=== PATIENT | male | born 1935 | race Caucasian/White ===

== ENCOUNTER 2018-03-24 14:13 | Emergency (ER) | payer MEDICARE, OTHER ==
[2018-03-24 14:18] VITALS: BP 145/83; PULSE 76; TEMP 98.3; BMI 27.7
[2018-03-24] MEDS ORDERED: DIPHTH,PERTUSS(ACELL),TET 0.5 ML DISP.SYRIN IM ONE (14:44)
--- NOTE | 2018-03-24 15:34 | PDOC ---
History of Present Illness - History of Present Illness Initial Comments: 03/24/18 15:28 The patient is a 82 year old male, with a past medical history of BPH, who presents to the emergency department with a laceration to the right side of the head. As per patient, a china cabinet fell over and landed his head. Pt denies falling down. He denies any loss of consciousness. Noted some bleeding from the injury that has since stopped. Denies neck or extremity trauma. No weakness. He denies any recent fevers, chills, headache or dizziness. He denies any recent nausea, vomit, diarrhea or constipation. He denies any recent chest pain or shortness of breath. Is not on any AC. Allergies: NKDA Past surgical history: None reported. Social History: Nonsmoker. Denies EtOH use and recreational drug use. <Nazario Correa - Last Filed: 03/24/18 16:06> <Kathryn Perez - Last Filed: 03/24/18 18:14> - General Chief Complaint: Laceration Stated Complaint: lac Time Seen by Provider: 03/24/18 14:20 Past History - Past Medical History COPD: No - Suicide/Smoking/Psychosocial Hx Smoking History: Never smoked Hx Alcohol Use: No Drug/Substance Use Hx: No Substance Use Type: None <Nazario Correa - Last Filed: 03/24/18 16:06> <Kathryn Perez - Last Filed: 03/24/18 18:14> - Past Medical History Allergies/Adverse Reactions: Allergies Allergy/AdvReac Type Severity Reaction Status Date / Time No Known Allergies Allergy Verified 03/24/18 14:14 Home Medications: Ambulatory Orders Tamsulosin HCl [Flomax] 0.4 mg PO DAILY 03/24/18 Review of Systems - Review of Systems Comments:: 03/24/18 15:31 "GENERAL/CONSTITUTIONAL: No fever or chills. No weakness. +HEAD, EYES, EARS, NOSE AND THROAT: Laceration to the right side of the head. No change in vision. No ear pain or discharge. No sore throat. CARDIOVASCULAR: No chest pain or shortness of breath. RESPIRATORY: No cough, wheezing, or hemoptysis. GASTROINTESTINAL: No nausea, vomiting, diarrhea or constipation. GENITOURINARY: No dysuria, frequency, or change in urination. MUSCULOSKELETAL: No joint or muscle swelling or pain. No neck or back pain. SKIN: No rash NEUROLOGIC: No headache, vertigo, loss of consciousness, or change in strength/ sensation. ENDOCRINE: No increased thirst. No abnormal weight change. HEMATOLOGIC/LYMPHATIC: No anemia, easy bleeding, or history of blood clots. ALLERGIC/IMMUNOLOGIC: No hives or skin allergy. <Ou,Nazario - Last Filed: 03/24/18 16:06> *Physical Exam - Vital Signs Last Vital Signs Temp Pulse Resp BP Pulse Ox 98.3 F 76 18 145/83 98 03/24/18 14:14 03/24/18 14:14 03/24/18 14:14 03/24/18 14:14 03/24/18 14:14 - Physical Exam Comments: 03/24/18 15:34 GENERAL: Awake, alert, and fully oriented, in no acute distress. HEAD: + 2cm laceration to R uatsdin EYES: PERRLA, EOMI, sclera anicteric, conjunctiva clear ENT: Auricles normal inspection, hearing grossly normal, nares patent, oropharynx clear without exudates. Moist mucosa NECK: Nontender, no stepoffs, Normal ROM, supple, no lymphadenopathy, JVD, or masses LUNGS: Breath sounds equal, clear to auscultation bilaterally. No wheezes, and no crackles HEART: Regular rate and rhythm, normal S1 and S2, no murmurs, rubs or gallops ABDOMEN: Soft, nontender, normoactive bowel sounds. No guarding, no rebound. No masses EXTREMITIES: Normal range of motion, no edema. No clubbing or cyanosis. No cords, erythema, or tenderness NEUROLOGICAL: Cranial nerves II through XII intact. 5/5 strength and sensation in all extremities, Normal speech, normal gait, normal cerebellar function SKIN: Warm, Dry, normal turgor, no rashes or lesions noted. <Ou,Nazario - Last Filed: 03/24/18 16:06> - Vital Signs Last Vital Signs Temp Pulse Resp BP Pulse Ox 98.3 F 76 18 145/83 98 03/24/18 14:14 03/24/18 14:14 03/24/18 14:14 03/24/18 14:14 03/24/18 14:14 <Kathryn Perez - Last Filed: 03/24/18 18:14> Procedures - Laceration/Wound Repair Right Head Wound Length: to 2.5 cm Wound Explored: clean Wound's Depth, Shape: superficial Irrigated w/ Saline: Yes Anesthesia: 1% Lidocaine Wound Repaired With: [place] Number of Sutures: 3 <Nazario Correa - Last Filed: 03/24/18 16:06> ED Treatment Course - RADIOLOGY Radiology Studies Ordered: Category Date Time Status HEAD CT WITHOUT CONTRAST [CT] Stat CT Scan 03/24/18 14:44 Taken <Nazario Correa - Last Filed: 03/24/18 16:06> - Medications Given in the ED: ED Medications Discontinued Medications Generic Name Dose Route Start Last Admin Trade Name Freq PRN Reason Stop Dose Admin Diphtheria/Tetanus/Acell Pertussis 0.5 ml 03/24/18 14:44 03/24/18 16:17 Boostrix - IM 03/24/18 14:45 0.5 ml .ONCE ONE Administration <Kathryn Perez - Last Filed: 03/24/18 18:14> Medical Decision Making - Medical Decision Making 03/24/18 15:34 82 M with head lac after [employer] cabinet fell on him. Pt with no other signs of injury. - CT head - Tdap - Lac repair 03/24/18 15:50 CT head negative 03/24/18 16:07 Lac irrigated with NS, repaired with 3 tennille Pt counseled on wound care and scar formation Pt is well appearing, with normal vitals. Clinically stable for DC at this time. I discussed the physical exam findings, ancillary test results and final diagnoses with the patient. I answered all of the patient's questions. The patient was satisfied with the care received and felt comfortable with the discharge plan and treatment plan. The patient agrees to follow up with the primary care physician within 24-72 hours. <Nazario Correa - Last Filed: 03/24/18 16:06> *DC/Admit/Observation/Transfer - Attestations Physician Attestion: 03/24/18 16:09 I, Dr. Nazario Correa MD, attest that this document has been prepared under my direction and personally reviewed by me in its entirety. I further attest, that it accurately reflects all work, treatment, procedures and medical decision -making performed by me. <Nazario Correa - Last Filed: 03/24/18 16:06> - Attestations Scribe Attestion: 03/24/18 18:14 Documentation prepared by Kathryn Perez, acting as medical records library professor for Nazario Correa MD. <Kathryn Perez - Last Filed: 03/24/18 18:14> Diagnosis at time of Disposition: Laceration - Discharge Dispostion Disposition: HOME Condition at time of disposition: Stable - Patient Instructions Printed Discharge Instructions: DI for Laceration Repair Additional Instructions: You have 3 tennille in your scalp. These must removed in 7-10 days. Keep your wound clean and dry for 24 hours. Afterwards, you may wash gently with soap and water. Do not soak the wound. If you experience any bleeding, redness, swelling, pain, or any other concerning symptoms, return to the ER immediately.
== END 2018-03-24 16:22 | disposition home or self-care (01) ==
LOC: FER 14:13
PROC: 0HQ0XZZ Repair Scalp Skin, External Approach (ICD-10-PCS; principal; 2018-03-24)
PROC: 3E0234Z Introduction of Serum, Toxoid and Vaccine into Muscle, Percutaneous Approach (ICD-10-PCS; 2018-03-24)
DX: S01.01XA Laceration without foreign body of scalp, initial encounter (principal); W22.8XXA Striking against or struck by other objects, initial encounter; Y93.9 Activity, unspecified; Y92.9 Unspecified place or not applicable; N40.0 Benign prostatic hyperplasia without lower urinary tract symptoms
CPT/HCPCS: 70450-TC; 90715; 99282-25

== ENCOUNTER 2018-08-11 19:49 | Inpatient (IN) | payer OTHER ==
--- NOTE | 2018-08-11 19:54 | PDOC ---
History of Present Illness - General History Source: Patient, Family () Exam Limitations: No Limitations - History of Present Illness Initial Comments: 08/11/18 20:45 The patient is a 83 year old male presenting with his , who presents to the ED complaining of a head injury today. He notes that he tripped on a divider in the parking lot, landing on his left side. He reports that he hit his head and lost consciousness for a few minutes. His took him to an urgent care, who advised them to come to the ED as they do not have a CT scanner. He denies any other kind of injuries, bruises or tenderness. The patient denies chest pain, shortness of breath, headache and dizziness. Denies fever, chills, nausea, vomiting, diarrhea or constipation. Denies dysuria , frequency, urgency and hematuria. PAST MEDICAL HISTORY: no significant history PAST SURGICAL HISTORY: Bilateral hip and knee replacement FAMILY HISTORY: no pertinent history SOCIAL HISTORY: Pt lives with family and is employed. MEDICATIONS: reviewed ALLERGIES: As per nursing notes General: No fevers or chills, no weakness, no weight loss HEENT: (+) Head Injury. No change in vision. No sore throat,. No ear pain CardioVascular: No chest pain or shortness of breath Respiratory:No cough, or wheezing. Gastrointestinal: no nausea, vomiting, diarrhea or constipation, No rectal bleeding Genitourinary: No dysuria, hematuria, or frequency Musculoskeletal: No joint or muscle pain or swelling Neurologic: No headache, vertigo, dizziness or loss of consciousness Psychiatric: nor depression Skin: No rashes or easy bruising Endocrine: no increased thirst or abnormal weight change Allergic: no skin or latex allergy All other systems reviewed and normal General: Well-nourished well-developed individual, no acute distress HEENT: Throat: Normal, tonsils normal, no erythema or exudate Neck: Supple, no meningeal signs, no lymphadenopathy Eyes::Pupils equal reactive and round, extraocular motion intact Chest: Nontender to palpation Cardiac: S1-S2 normal, regular rate and rhythm, no murmurs rubs or gallops Respiratory: Lungs clear to auscultation bilateral Abdomen: Soft, nondistended, normal bowel sounds, nontender to palpation diffusely Extremities: Warm, dry, no cyanosis, clubbing, or edema Skin: No rashes Neuro: Alert and oriented x3, nonfocal exam, grossly intact, normal gait Psych: Normal mood and affect <Sachin Peterson - Last Filed: 08/11/18 20:45> - General History Source: Patient Exam Limitations: No Limitations - History of Present Illness Initial Comments: A portion of this note was documented by scribe services under my direction. I have reviewed the details of the note, within reason, and agree with the documentation with the following case summary and management plan written by me. Patient treated in the ED. Nursing notes are reviewed and incorporated into the medical decision-making. Vital signs reviewed. Assessment and plan: This is an 83-year-old male who comes in post tripping and falling. Patient said post falling he did hit his head and has felt dizzy here in the emergency department on arrival in the ED patient was noted to have marked bradycardia with heart rate of 36 with a idioventricular rhythm. Patient had a marked prolonged WI interval. Patient otherwise denied any chest pain shortness of breath or any other symptoms and his blood pressure with a heart rate in the 36 was 114 systolic Patient put on an external pacer however pacer not turned on as he is alert oriented mentating normally and has a normal blood pressure Patient well be admitted to a telemetry bed for further evaluation and workup of his bradycardia 08/11/18 21:32 <Fredy Mejia I - Last Filed: 08/11/18 22:29> - General Chief Complaint: Injury Stated Complaint: HEAD INJURY Time Seen by Provider: 08/11/18 19:53 Past History <Sachin Peterson - Last Filed: 08/11/18 20:45> - Past Medical History COPD: No - Suicide/Smoking/Psychosocial Hx Smoking History: Never smoked Hx Alcohol Use: No Drug/Substance Use Hx: No Substance Use Type: None <Fredy Mejia I - Last Filed: 08/11/18 22:29> - Past Medical History Allergies/Adverse Reactions: Allergies Allergy/AdvReac Type Severity Reaction Status Date / Time No Known Allergies Allergy Verified 03/24/18 14:14 Home Medications: Ambulatory Orders Tamsulosin HCl [Flomax] 0.4 mg PO DAILY 03/24/18 *Physical Exam - Vital Signs Last Vital Signs Temp Pulse Resp BP Pulse Ox 97.7 F 37 L 16 114/81 100 08/11/18 19:51 08/11/18 19:51 08/11/18 19:51 08/11/18 19:51 08/11/18 19:51 <Sachin Peterson - Last Filed: 08/11/18 20:45> Moderate Sedation - Procedure Monitoring Vital Signs: Procedure Monitoring Vital Signs Temperature 97.7 F 08/11/18 19:51 Pulse Rate 37 L 08/11/18 19:51 Respiratory Rate 16 08/11/18 19:51 Blood Pressure 114/81 08/11/18 19:51 O2 Sat by Pulse Oximetry (%) 100 08/11/18 19:51 <Sachin Peterson - Last Filed: 08/11/18 20:45> ED Treatment Course - LABORATORY CBC & Chemistry Diagram: 08/11/18 20:45 08/11/18 20:45 <Fredy Mejia I - Last Filed: 08/11/18 22:29> *DC/Admit/Observation/Transfer - Attestations Scribe Attestion: 08/11/18 20:45 Documentation prepared by Sachin Peterson, acting as medical administrative for Fredy Mejia MD <Sachin Peterson - Last Filed: 08/11/18 20:45> - Discharge Dispostion Decision to Admit order: Yes <Fredy Mejia I - Last Filed: 08/11/18 22:29> Diagnosis at time of Disposition: Bradycardia, Fall - Discharge Dispostion Condition at time of disposition: Stable - Referrals Referrals: Monty Durant MD [Primary Care Provider] - - Patient Instructions - Post Discharge Activity
[2018-08-11 21:18] LABS: BASO % 0.3 % (0-2.0); HEMATOCRIT 37.3 % (35.4-49); HEMOGLOBIN 12.4 GM/dl (11.7-16.9); LYMPH % 15.9 % (8-40); MCH 31.7 pg (25.7-33.7); MCHC 33.2 g/dl (32.0-35.9); MEAN CELL VOLUME 95.5 fl (80-96); MONO % 10.2 % (3.8-10.2); NEUT % 72.6 % (42.8-82.8); PLATELET COUNT 197 K/MM3 (134-434); RDW 14.7 % (11.9-15.9)
[2018-08-11 21:26] LABS: ALBUMIN 3.6 g/dl (3.4-5.0); ALK PHOS 84 U/L (45-117); ANION GAP 9 MMOL/L (8-16); BLOOD UREA NITROGEN 27 mg/dl (7-18); CHLORIDE 105 mmol/L (98-107); CO2 21 mmol/L (21-32); CREATININE 1.1 mg/dl (0.55-1.3); GLUCOSE,RANDOM 139 mg/dl (74-106); POTASSIUM 4.2 mmol/L (3.5-5.1); SGOT/AST 31 U/L (15-37); SGPT/ALT 28 U/L (13-61); SODIUM 135 mmol/L (136-145); TOT PROT 6.3 g/dl (6.4-8.2)
[2018-08-11 21:33] LABS: ACTIVATED PTT 27.1 SECONDS (25.2-36.5)
[2018-08-11 21:38] LABS: INR 1.32 (0.82-1.09); PROTHROMBIN TIME (PATIENT) 14.7 SEC (10.2-13.0)
--- NOTE | 2018-08-11 22:26 | HP ---
CHIEF COMPLAINT: s/p Fall, Syncope PCP: Dr. Shubham Durant HISTORY OF PRESENT ILLNESS: This is a 83 y/o man with a past medical history of BPH. Who presents to the ED from urgent care s/p fall. Patient reports tripping and falling on the divider in the parking lot, hitting his left side. Patient reports LOC for a few minutes. He reports going to urgent care but was sent here for a Head CT because the facility did not have one. Patient denies lightheadedness or dizziness prior to the fall. Patient reports having a slight headache with lightheadedness since the fall. Patient denies N/V or blurred vision. Patient denies fever, chills, cough, SOB, CP, palpitations, AP, N/V/D, constipation. ER course was notable for: (1) Head CT- moderate atrophy, no ICH (2) EKG- marked sinus bradycardia with AV dissociation and idoventricular rhythm , RBBB, marked T wave abnormality (3) Chest Xray- mild cardiomegaly, without acute disease Recent Travel: None PAST MEDICAL HISTORY: See HPI PAST SURGICAL HISTORY: Social History: Smoking: Never Alcohol: None Drugs: None Lives with spouse, Independent Family History: Non-contributory Allergies No Known Allergies Allergy (Verified 03/24/18 14:14) HOME MEDICATIONS: Home Medications Medication Instructions Recorded Tamsulosin HCl [Flomax] 0.4 mg PO DAILY 03/24/18 REVIEW OF SYSTEMS CONSTITUTIONAL: Absent: fever, chills, diaphoresis, generalized weakness, malaise, loss of appetite, weight change HEENT: Absent: rhinorrhea, nasal congestion, throat pain, throat swelling, difficulty swallowing, mouth swelling, ear pain, eye pain, visual changes CARDIOVASCULAR: syncope, lightheadedness Absent: chest pain, palpitations, irregular heart rate, peripheral edema RESPIRATORY: Absent: cough, shortness of breath, dyspnea with exertion, orthopnea, wheezing, stridor, hemoptysis GASTROINTESTINAL: Absent: abdominal pain, abdominal distension, nausea, vomiting, diarrhea, constipation, melena, hematochezia GENITOURINARY: Absent: dysuria, frequency, urgency, hesitancy, hematuria, flank pain, genital pain MUSCULOSKELETAL: Absent: myalgia, arthralgia, joint swelling, back pain, neck pain SKIN: Absent: rash, itching, pallor HEMATOLOGIC/IMMUNOLOGIC: Absent: easy bleeding, easy bruising, lymphadenopathy, frequent infections ENDOCRINE: Absent: unexplained weight gain, unexplained weight loss, heat intolerance, cold intolerance NEUROLOGIC: headache, dizziness Absent: focal weakness or paresthesias, unsteady gait, seizure, mental status changes, bladder or bowel incontinence PSYCHIATRIC: Absent: anxiety, depression, suicidal or homicidal ideation, hallucinations. PHYSICAL EXAMINATION Vital Signs - 24 hr 08/11/18 08/11/18 19:51 21:16 Temperature 97.7 F 100 F H Pulse Rate 37 L Pulse Rate [ 36 L Apical] Respiratory 16 20 Rate Blood Pressure 114/81 Blood Pressure 113/63 [Arm] O2 Sat by Pulse 100 Oximetry (%) GENERAL: Awake, alert, and fully oriented, in no acute distress. HEAD: Normal with no signs of trauma. EYES: Pupils equal, round and reactive to light, extraocular movements intact, sclera anicteric, conjunctiva clear. No lid lag. EARS, NOSE, THROAT: Ears normal, nares patent, oropharynx clear without exudates. Moist mucous membranes. NECK: Normal range of motion, supple without lymphadenopathy, JVD, or masses. LUNGS: Breath sounds equal, clear to auscultation bilaterally. No wheezes, and no crackles. No accessory muscle use. HEART: Irregular rate and rhythm, normal S1 and S2 without murmur, rub or gallop. Pacer Pads with Zoll monitor ABDOMEN: Soft, nontender, not distended, normoactive bowel sounds, no guarding, no rebound, no masses. No hepatomegaly or splenomegaly. MUSCULOSKELETAL: Normal range of motion at all joints. No bony deformities or tenderness. No CVA tenderness. UPPER EXTREMITIES: 2+ pulses, warm, well-perfused. No cyanosis. No clubbing. No peripheral edema. LOWER EXTREMITIES: 2+ pulses, warm, well-perfused. No calf tenderness. No peripheral edema. NEUROLOGICAL: Cranial nerves II-XII intact. Normal speech. Normal gait. PSYCHIATRIC: Cooperative. Good eye contact. Appropriate mood and affect. SKIN: Warm, dry, normal turgor, no rashes or lesions noted, normal capillary refill. Laboratory Results - last 24 hr 08/11/18 08/11/18 08/11/18 20:45 20:45 20:45 WBC 7.0 RBC 3.90 L Hgb 12.4 Hct 37.3 MCV 95.5 MCH 31.7 MCHC 33.2 RDW 14.7 Plt Count 197 MPV 9.0 Absolute Neuts (auto) 5.1 Neutrophils % 72.6 Lymphocytes % 15.9 Monocytes % 10.2 Eosinophils % 1.0 Basophils % 0.3 PT with INR 14.7 H INR 1.32 H PTT (Actin FS) 27.1 Sodium 135 L Potassium 4.2 Chloride 105 Carbon Dioxide 21 Anion Gap 9 BUN 27 H Creatinine 1.1 Creat Clearance w eGFR > 60 Random Glucose 139 H Calcium 9.0 Total Bilirubin 2.0 H AST 31 ALT 28 Alkaline Phosphatase 84 Creatine Kinase 147 Troponin I Total Protein 6.3 L Albumin 3.6 08/11/18 20:45 WBC RBC Hgb Hct MCV MCH MCHC RDW Plt Count MPV Absolute Neuts (auto) Neutrophils % Lymphocytes % Monocytes % Eosinophils % Basophils % PT with INR INR PTT (Actin FS) Sodium Potassium Chloride Carbon Dioxide Anion Gap BUN Creatinine Creat Clearance w eGFR Random Glucose Calcium Total Bilirubin AST ALT Alkaline Phosphatase Creatine Kinase Troponin I 0.03 Total Protein Albumin ASSESSMENT/PLAN: This is a 83 y/o man with a PMHx of: BPH. Admitted to Telemetry for Syncope, Symptomatic Bradycardia for further evaluation of their emergent condition. Plan: Admit to Telemetry Continue Cardiac monitoring Serial Enzymes Appreciate Cardiology consult Echo Carotid Doppler Pacer Pads CBC, CMP, Mg, Phos, Lipid Profile, HgbA1c in am Seizure Precautions Fall Precautions Continue Flomax FEN- D51/2NS@42ml/hr, replete lytes prn, NPO until cleared by Cardiology DVT ppx- OOB, SCDs, Heparin SQ Code Status: Full Code Dispo: Requires Inpatient Care Problem List - Problem (1) Syncope Code(s): R55 - SYNCOPE AND COLLAPSE (2) Bradycardia Code(s): R00.1 - BRADYCARDIA, UNSPECIFIED (3) Fall Code(s): W19.XXXA - UNSPECIFIED FALL, INITIAL ENCOUNTER (4) BPH (benign prostatic hyperplasia) Code(s): N40.0 - BENIGN PROSTATIC HYPERPLASIA WITHOUT LOWER URINRY TRACT SYMP Visit type - Emergency Visit Emergency Visit: Yes ED Registration Date: 08/11/18 Care time: The patient presented to the Emergency Department on the above date and was hospitalized for further evaluation of their emergent condition. - New Patient This patient is new to me today: Yes Date on this admission: 08/12/18 - Critical Care Critical Care patient: No
[2018-08-12 06:02] LABS: BASO % 0.7 % (0-2.0); EOS % 1.5 % (0-4.5); HEMOGLOBIN 11.2 GM/dL (11.7-16.9); LYMPH % 29.6 % (8-40); MCH 32.3 pg (25.7-33.7); MEAN PLT VOLUME 8.6 fl (7.5-11.1); MONO % 14.9 % (3.8-10.2); NEUT % 53.3 % (42.8-82.8); PLATELET COUNT 176 K/MM3 (134-434); RBC 3.47 M/mm3 (4.00-5.60); WHITE BLOOD COUNT 4.2 K/mm3 (4.0-10.0)
[2018-08-12 06:32] VITALS: BMI 25.5
[2018-08-12 06:56] LABS: ALK PHOS 80 U/L (45-117); ANION GAP 6 MMOL/L (8-16); BILIRUBIN,TOTAL 1.8 mg/dL (0.2-1); BLOOD UREA NITROGEN 25 mg/dL (7-18); CALCIUM 8.3 mg/dL (8.5-10.1); CHLORIDE 108 mmol/L (98-107); CHOLESTEROL 119 mg/dL (50-200); CO2 24 mmol/L (21-32); CREATININE 0.9 mg/dL (0.55-1.3); GLUCOSE,RANDOM 83 mg/dL (74-106); HDL CHOLESTEROL 42 mg/dL (40-60); MAGNESIUM 2.2 mg/dL (1.8-2.4); PHOSPHOROUS 3.6 mg/dL (2.5-4.9); POTASSIUM 3.9 mmol/L (3.5-5.1); SGOT/AST 32 U/L (15-37); SGPT/ALT 38 U/L (13-61); SODIUM 139 mmol/L (136-145); TOT PROT 5.8 g/dl (6.4-8.2); TRIGLYCERIDES 40 mg/dL (0-150)
[2018-08-12] MEDS ORDERED: DEXTROSE 5%-0.45% SALINE 1,000 ML IV SCH (08:00)
[2018-08-12] MEDS ORDERED: TAMSULOSIN HCL 0.4 MG CAP PO SCH (08:30)
--- NOTE | 2018-08-12 13:26 | PN ---
Progress Note, Physician Chief Complaint: patient seen and examined came in with syncopal episode on monitor bradycardia with dissociation ekg done shows marked bradycardia feels light headed when he gets oit of bed to chair - Current Medication List Current Medications: Active Medications Dextrose/Sodium Chloride (D5-1/2ns -) 1,000 mls @ 42 mls/hr IV ASDIR [facility] Last Admin: 08/12/18 08:30 Dose: 42 mls/hr Tamsulosin HCl (Flomax -) 0.4 mg PO DAILY@0830 [facility] Last Admin: 08/12/18 10:49 Dose: 0.4 mg - Objective Vital Signs: Vital Signs Temperature 98.2 F 08/12/18 02:39 Pulse Rate 32 L 08/12/18 06:28 Respiratory Rate 16 08/12/18 06:28 Blood Pressure 128/62 08/12/18 06:28 O2 Sat by Pulse Oximetry (%) 99 08/12/18 09:00 Constitutional: Yes: Calm Cardiovascular: Yes: Bradycardia, S1, S2 Respiratory: Yes: CTA Bilaterally Gastrointestinal: Yes: Normal Bowel Sounds, Soft Edema: No Neurological: Yes: Alert, Oriented Labs: CBC, BMP 08/12/18 05:30 08/12/18 05:30 INR, PTT INR 1.32 (0.82-1.09) H 08/11/18 20:45 Problem List - Problems (1) Bradycardia Assessment/Plan: telemetry cardioloogy- plan to [facility] Code(s): R00.1 - BRADYCARDIA, UNSPECIFIED (2) BPH (benign prostatic hyperplasia) Assessment/Plan: flomax, Code(s): N40.0 - BENIGN PROSTATIC HYPERPLASIA WITHOUT LOWER URINRY TRACT SYMP (3) Fall Assessment/Plan: carotid doppler and ECHO Code(s): W19.XXXA - UNSPECIFIED FALL, INITIAL ENCOUNTER
--- NOTE | 2018-08-12 13:40 | ECHO ---
Name: ARNEL LYNCHUli Arechiga Exam:Adult Echocardiogram Study Date: 08/12/2018 09:51 AM Age: 83 yrs Reason For Study: bradycardia MMode/2D Measurements & Calculations IVSd: 0.91 cm Ao root diam: 3.1 cm LVIDd: 4.8 cm LA dimension: 3.6 cm LVIDs: 4.2 cm LVPWd: 0.85 cm LVPWs: 1.6 cm EDV(Teich): 105.9 ml ESV(Teich): 79.0 ml LVOT diam: 2.0 cm TAPSE: 2.8 cm RV S Van: 12.2 cm/sec Doppler Measurements & Calculations MVA(VTI): 0.75 cm2 MV E max van: 129.0 cm/sec MV V2 max: 135.6 cm/sec MV A max van: 52.9 cm/sec MV max P.4 mmHg MV E/A: 2.4 MV V2 mean: 54.7 cm/sec MV dec time: 0.15 sec MV mean P.6 mmHg MV V2 VTI: 64.4 cm Ao V2 max: 204.6 cm/sec LV V1 max P.7 mmHg Ao max P.8 mmHg LV V1 mean P.78 mmHg Ao V2 mean: 116.5 cm/sec LV V1 max: 66.0 cm/sec Ao mean P.9 mmHg LV V1 mean: 38.4 cm/sec Ao V2 VTI: 50.4 cm LV V1 VTI: 15.4 cm ARLENE(I,D): 0.95 cm2 ARLENE(V,D): 1.0 cm2 SV(LVOT): 48.0 ml TR max van: 267.9 cm/sec TR max P.9 mmHg PA V2 max: 112.8 cm/sec Med Peak E' Van: 6.4 cm/sec PA max P.1 mmHg Med E/e': 20.1 PA acc time: 0.82 sec Lat Peak E' Van: 15.0 cm/sec Lat E/e': 8.6 PA pr(Accel): -290.2 mmHg Left Ventricle Ejection Fraction = 30-35%. Left ventricular systolic function is severely reduced. Right Ventricle The right ventricle is normal in size and function. Atria The left atrium is mildly dilated. Mitral Valve There is mild mitral annular calcification. There is no mitral valve stenosis. There is mild mitral regurgitation. Tricuspid Valve The tricuspid valve is normal in structure and function. There is mild tricuspid regurgitation. Right ventricular systolic pressure is elevated at 30-40mmHg. Aortic Valve There is mild aortic sclerosis.;. No hemodynamically significant valvular aortic stenosis. No aortic regurgitation is present. Pulmonic Valve The pulmonic valve is not well seen, but is grossly normal. There is no pulmonic valvular stenosis. M ild pulmonic valvular regurgitation. Great Vessels The aortic root is normal size. Pericardium/Pleura There is no pericardial effusion. Interpretation Summary Ejection Fraction = 30-35%. Left ventricular systolic function is severely reduced. The left atrium is mildly dilated. There is mild mitral annular calcification. There is mild mitral regurgitation. There is mild tricuspid regurgitation. Right ventricular systolic pressure is elevated at 30-40mmHg. There is mild aortic sclerosis.; There is no pericardial effusion. MD Pagan *Verna 08/12/2018 01:39 PM
--- NOTE | 2018-08-12 13:53 | EKG ---
Test Reason : Blood Pressure : / mmHG Vent. Rate : 036 BPM Atrial Rate : 034 BPM P-R Int : 000 ms QRS Dur : 126 ms QT Int : 610 ms P-R-T Axes : 000 108 041 degrees QTc Int : 471 ms MARKED SINUS BRADYCARDIA WITH A-V DISSOCIATION AND IDIOVENTRICULAR RHYTHM RIGHT BUNDLE BRANCH BLOCK MARKED T WAVE ABNORMALITY, CONSIDER LATERAL ISCHEMIA ABNORMAL ECG Confirmed by NICKY MELCHOR MD ([id number]) on 08/12/2018 1:52:52 PM Referred By: DR TALBERT Confirmed By:NICKY MELCHOR MD
--- NOTE | 2018-08-12 14:13 | EKG ---
Test Reason : Blood Pressure : / mmHG Vent. Rate : 037 BPM Atrial Rate : 037 BPM P-R Int : 000 ms QRS Dur : 146 ms QT Int : 622 ms P-R-T Axes : 000 -19 089 degrees QTc Int : 488 ms MARKED SINUS BRADYCARDIA with AV dissociation LEFT BUNDLE BRANCH BLOCK ABNORMAL ECG Confirmed by NICKY MELCHOR MD ([id number]) on 08/12/2018 2:13:34 PM Referred By: Confirmed By:NICKY MELCHOR MD
--- NOTE | 2018-08-12 15:18 | DS ---
Physical Examination Vital Signs: Vital Signs Temperature 98.3 F 08/12/18 10:00 Pulse Rate 37 L 08/12/18 13:38 Respiratory Rate 14 08/12/18 13:38 Blood Pressure 143/53 L 08/12/18 13:38 O2 Sat by Pulse Oximetry (%) 99 08/12/18 09:00 Constitutional: Yes: Calm Cardiovascular: Yes: Regular Rate and Rhythm, S1, S2 Respiratory: Yes: CTA Bilaterally Gastrointestinal: Yes: Normal Bowel Sounds, Soft Edema: No Neurological: Yes: Alert, Oriented Labs: CBC, BMP 08/12/18 05:30 08/12/18 05:30 Discharge Summary Reason For Visit: BRADYCARDIA, FALL Current Active Problems BPH (benign prostatic hyperplasia) (Acute) Bradycardia (Acute) Fall (Acute) Syncope (Acute) Other Procedures: echo severely reduced EF of 30-35% Hospital Course: [facility] COMPLAINT: s/p Fall, Syncope PCP: Dr. Shubham Durant HISTORY OF PRESENT ILLNESS: This is a 83 y/o man with a past medical history of BPH. Who presents to the ED from urgent care s/p fall. Patient reports tripping and falling on the divider in the parking lot, hitting his left side. Patient reports LOC for a few minutes. He reports going to urgent care but was sent here for a Head CT because the facility did not have one. Patient denies lightheadedness or dizziness prior to the fall. Patient reports having a slight headache with lightheadedness since the fall. Patient denies N/V or blurred vision. Patient denies fever, chills, cough, SOB, CP, palpitations, AP, N/V/D, constipation. ER course was notable for: (1) Head CT- moderate atrophy, no ICH (2) EKG- marked sinus bradycardia with AV dissociation and idoventricular rhythm , RBBB, marked T wave abnormality (3) Chest Xray- mild cardiomegaly, without acute disease plan to [facility] to [facility] Condition: Guarded - Instructions Referrals: Monty Durant MD [Primary Care Provider] - Disposition: TRANSFER ACUTE CARE/OTHER HOSP - Home Medications Comprehensive Discharge Medication List: Ambulatory Orders Tamsulosin HCl [Flomax] 0.4 mg PO DAILY 03/24/18 Finasteride [Proscar -] 5 mg PO DAILY 08/12/18 Preservision Areds 2 Softgel 2 cap PO AM 08/12/18
--- NOTE | 2018-08-12 15:55 | CON.CARD ---
Consult Consult Specialty:: Cardiology Reason for Consultation:: Bradycardia - History of Present Illness Chief Complaint: S/P Fall History of Present Illness: This is an 83 year old male with a PMH of BPH. He was shopping today and on his way to his car, he stated that he tripped on a divider in the parking lot, fell to the ground, hit the left side of his head, and lost consciousness. He went to [facility] and then to [facility]. Head CT showed mild atrophy with no acute findings. EKG showed marked sinus bradycardia at 37 BPM with 1st degree AVB, LBBB. Another EKG showed a ventricular rate of 36 BPM with AV dissocaiton. - Alcohol/Substance Use Hx Alcohol Use: No - Smoking History Smoking history: Never smoked Have you smoked in the past 12 months: No Home Medications - Allergies Allergies/Adverse Reactions: Allergies Allergy/AdvReac Type Severity Reaction Status Date / Time No Known Allergies Allergy Verified 03/24/18 14:14 - Home Medications Home Medications: Ambulatory Orders Tamsulosin HCl [Flomax] 0.4 mg PO DAILY 03/24/18 Finasteride [Proscar -] 5 mg PO DAILY 08/12/18 Preservision Areds 2 Softgel 2 cap PO AM 08/12/18 Vital Signs: Vital Signs Temperature 98.3 F 08/12/18 10:00 Pulse Rate 37 L 08/12/18 13:38 Respiratory Rate 14 08/12/18 13:38 Blood Pressure 143/53 L 08/12/18 13:38 O2 Sat by Pulse Oximetry (%) 99 08/12/18 09:00 Constitutional: Yes: No Distress Eyes: Yes: WNL HENT: Yes: WNL Neck: Yes: WNL Respiratory: Yes: CTA Bilaterally Gastrointestinal: Yes: Soft Cardiovascular: Yes: Bradycardia (NL S1S2 no MRHG) JVD: No Edema: No Neurological: Yes: Alert, Oriented - Other Data Labs, Other Data: CBC, BMP 08/12/18 05:30 08/12/18 05:30 INR, PTT INR 1.32 (0.82-1.09) H 08/11/18 20:45 Troponin, BNP 08/11/18 08/12/18 08/12/18 20:45 02:15 05:30 Troponin I 0.03 0.07 H 0.07 H Troponin, BNP 08/11/18 08/12/18 08/12/18 20:45 02:15 05:30 Troponin I 0.03 0.07 H 0.07 H Assessment/Plan 83 year old male with a PMH of BPH. He was shopping today and on his way to his car, he stated that he tripped on a divider in the parking lot, fell to the ground, hit the left side of his head, and lost consciousness. He went to [facility] and then to [facility]. Head CT showed mild atrophy with no acute findings. EKG showed marked sinus bradycardia at 37 BPM with 1st degree AVB, LBBB. Another EKG showed a ventricular rate of 36 BPM with AV dissocaiton. Echocardiogram 08/12/18 EF 30 - 35% Severe LV dysfunction Mild LAE Mild MR Mild TR RVSP 35 mmHg Transferring to [facility] for a PPM evaluation.
[2018-08-13 00:50] VITALS: BP 152/58; PULSE 37
[2018-08-13 01:21] VITALS: TEMP 98.5
== END 2018-08-13 01:16 | disposition short-term general hospital (02) | DRG 312 ==
LOC: FER 19:49 → JICU 22:39 → J2W 23:24
PROVIDERS: ADMIT Internal Medicine; ATTEND Family Medicine
DX: R55 Syncope and collapse (principal); R00.1 Bradycardia, unspecified; N40.0 Benign prostatic hyperplasia without lower urinary tract symptoms; I44.7 Left bundle-branch block, unspecified; I44.0 Atrioventricular block, first degree
CPT/HCPCS: 36415; 70450-TC; 71045-TC-FY; 80053; 80061; 82550; 83036; 83721; 83735; 84100; 84484; 85025; 85610; 85730; 93005; 93010; 93306-TC; 99285-25

== ENCOUNTER 2020-02-07 12:06 | Emergency (ER) | payer OTHER ==
[2020-02-07] MEDS ORDERED: ACETAMINOPHEN 325 MG TABLET (FP) PO ONE (12:08)
--- NOTE | 2020-02-07 12:11 | PDOC ---
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 No LOC. +mild headache. +multiple facial abrasions, bleeding controlled, small abrasions to left dorsal hand. gait stable. no visual or hearing changes, n/v, dizziness, chest pain, SOB, neurologic changes. no prodromal sx. no anticoagulant use. tetanus is up to date within the last couple of years. 02/07/20 12:12 02/07/20 12:23 02/07/20 12:24 02/07/20 13:07 02/07/20 13:47 02/07/20 14:45 Past History - Medical History Allergies/Adverse Reactions: Allergies Allergy/AdvReac Type Severity Reaction Status Date / Time No Known Allergies Allergy Verified 02/07/20 12:51 Home Medications: Ambulatory Orders Tamsulosin HCl [Flomax] 0.4 mg PO DAILY 03/24/18 Finasteride [Proscar -] 5 mg PO DAILY 08/12/18 Preservision Areds 2 Softgel 2 cap PO AM 08/12/18 COPD: No Disorders: Yes (BLADDER/PROSTATE PROBLEMS) - Surgical History Orthopedic Surgery: Yes (Bilateral Hip and Knee) - Psycho-Social/Smoking History Smoking History: Never smoked Have you smoked in the past 12 months: No Review of Systems - Review of Systems Able to Perform ROS?: Yes Comments:: 02/07/20 13:09 ROS: Constitutional: no fevers or chills. HEENT: +headache, no dizziness. No visual or hearing changes. No dental pain. No neck pain CVS: no chest pain or palpitations, no syncope Resp: no shortness of breath Abdomen: no abdominal pain, no vomiting. Genitorurinary: no urinary retention or incontinence, no dysuria, urgency or frequency. no hematuria MUSCULOSKELETAL: No joint pain and swelling. No muscle pain/arthralgias. Back: no back pain SKIN: no redness or skin changes, no discharge, no rash. +wounds and facial abrasions. Hematologic: no easy bruising/bleeding. NEUROLOGIC: No weakness, numbness or tingling. Allergic/Immunologic: no allergies All other systems reviewed and negative, or as documented in HPI. *Physical Exam - Physical Exam 02/07/20 13:09 Physical exam: General: GCS 15 - NAD, well appearing HEENT: PERRL, +left corneal opacity/haziness, complete blindness. vision intact in right eye. EOMI. Airway intact. No battles sign or raccoon eyes. No e/o ocular. Dentition intact. No e/o septal hematoma, nasal bridge stable. bilateral TM clear, no hemotympanum. +abrasions to the left frontal forehead, 2cm curvilinear laceration to the nasal bridge. +left upper lateral cheek abrasions. Left lower lip superficial abrasion +contusion to the nose. Neck: neck supple, no midline C spine tenderness or deformity, ROM intact. No anterior mass or crepitus, trachea midline. Resp: Lungs clear bilaterally Chest: no clavicle or chest wall tenderness or crepitus; midline sternotomy scar, PPM in place CVS: RRR, 2+ pulses throughout. Abdomen: Abdomen soft, nontender, nondistended. Back: Back nontender, no midline spinal tenderness along cervical/thoracic/lumbar spine, FROM, no stepoffs. MSK: Pelvis stable, Extremities symmetric, no focal areas of tenderness or deformities, proximal and distally; no pain on axial loading. FROM in all extrem. Neuro: Alert, oriented appropriately. CN II-XII grossly symmetric and intact. no focal neuro deficits. Sensation and strength intact throughout. Gait normal/stable. Skin: intact, normal color and well perfused. +facial wounds/abrasions as documented in HEENT. +small abrasions to the left dorsal hand at the middle and ring finger knuck les/distal wrist +abrasions to the left frontal forehead, 2cm curvilinear laceration to the nasal bridge. +left upper lateral cheek abrasions. Left lower lip superficial abrasion 02/07/20 14:46 ED Treatment Course - RADIOLOGY Radiology Studies Ordered: Category Date Time Status CERVICAL SPINE CT W/O CONTR [CT] Stat CT Scan 02/07/20 12:[address] W/O CONTRAST [CT] Stat CT Scan 02/07/20 12:[address] WITHOUT CONTRAST [CT] Stat CT Scan 02/07/20 12:08 Ordered Medical Decision Making - Medical Decision Making 02/07/20 12:24 Vital Signs Temp Pulse Resp BP Pulse Ox 98.4 F 60 18 137/64 99 02/07/20 12:07 02/07/20 12:07 02/07/20 12:07 02/07/20 12:07 02/07/20 12:07 Trauma ddx: ICH, SDH/ EDH, skull fx, C spine injury/strain, extremity sprain/fracture, pelvis fracture. MSK contusion, msk spasms. Rib fractures. Clinically doubt Intra abdominal and thoracic injuries/bleed No evidence of skull fracture, intracranial bleed, dental trauma, cervical, thoracic, or vertebral fracture or subluxation, no suspicion of thoracic, abdominal, pelvic or extremity injury by exam. no prodromal sx to warrant further testing. no cp or sob. neuro intact. gait is stable. 02/07/20 13:47 CT head neg for acute pathology, bleed or skull fx. 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 wounds dressed, topical bacitracin and dressings wound care instructions steri strips to the nasal bridge ice to the area of pain and swelling DC stable condition, fall safety prevention, wound care, return precautions pt and family made aware of impression and plan, agreeable. 02/07/20 14:46 Discharge - Discharge Information Problems reviewed: Yes Clinical Impression/Diagnosis: Laceration, Contusion of face Fall Qualifiers: Encounter type: initial encounter Qualified Code(s): W19.XXXA - Unspecified fall, initial encounter Condition: Stable Disposition: HOME - Admission No - Follow up/Referral Referrals: Emergency Dept,Physician, [Emergency Physician] - - Patient Discharge Instructions Patient Printed Discharge Instructions: DI for Laceration Repair Steri-Strips, How to Prevent Falls, DI for Closed Head Injury, DI for Abrasion Additional Instructions: Wound Discharge: Wound dressed with topical Bacitracin and sterile gauze. Follow up with your primary care doctor within 48-72 hours for a wound check. Keep sutures covered and dry for 24 hours then clean with soap and water daily - do not scrub. Apply bacitracin or neosporin twice a day with warm soaks and cover with gauze/dressings. Steri strip bandaids to your nasal bridge laceration Return to the ED for any worsening pain, redness, streaking (red lines), swelling, fever or chills. Keep the wound clean and as dry as possible. Do not immerse or soak the wound in water. This means no swimming, washing dishes (unless thick rubber gloves are used), baths, or hot tubs until the stitches are removed or after about two weeks if absorbable suture material was used. Leave original bandages on the wound for the first 24 hours. After this time, showering or rinsing is recommended, rather than bathing. the first day, remove old bandages and gently cleanse the wound with soap and water. Cleansing twice a day prevents buildup of debris and will result in improved healing. FALL PREVENTION AT HOME WHAT YOU NEED TO KNOW There are many different factors that can increase your risk of falls. Falls can happen any time, but the majority of them occur in the home. Fall prevention includes ways to make your home and other areas safer. It also includes ways you can move more carefully to prevent a fall. Health conditions that cause changes in your blood pressure, vision, or muscle strength and coordination may increase your risk for falls. Medicines, including anesthesia, may increase your risk for falls if they make you dizzy, weak, or sleepy. FALL PREVENTION TIPS Stand or sit up slowly. This may help you keep your balance and prevent falls. Do not walk and talk at the same time. Concentrate on the task of walking and continue the conversation after you've reached a safe place. Wear shoes that fit well and have soles that kier hand. Wear shoes both inside and outside. Use slippers with good kier hand. Avoid shoes with high heels. Use assistive devices as directed. Your healthcare provider may suggest that you use a cane or walker to help you keep you balance. Be sure you have adequate lighting throughout your house. Keep paths clear. Remove books, shoes and other objects from walkways and stairs. Keep cords for telephones and lamps out of the way so you dont need to walk over them. Remove small rugs or secure them with double-sided tape. This will prevent you from tripping. Use a nightlight when getting out of bed at night. Stay active to maintain overall strength and endurance. Know your limitations. If there is a task you can not complete with ease, do not risk a fall by trying to complete it. Call 911 or have someone else call if: You have fallen and are unconscious You have fallen and cannot move part of your body Contact your healthcare provider if: You have fallen and have pain or a headache You have questions or concerns about your condition or care. - Post Discharge Activity
[2020-02-07 12:51] VITALS: BP 137/64; PULSE 60; TEMP 98.4; BMI 25.8
[2020-02-07] MEDS ORDERED: ACETAMINOPHEN 325 MG TABLET (FP) ONE (13:00)
--- NOTE | 2020-02-07 13:05 | PDOC ---
History of Present Illness - General Chief Complaint: Injury Stated Complaint: FALL Time Seen by Provider: 02/07/20 12:08 Past History - Medical History Allergies/Adverse Reactions: Allergies Allergy/AdvReac Type Severity Reaction Status Date / Time No Known Allergies Allergy Verified 02/07/20 12:51 Home Medications: Ambulatory Orders Tamsulosin HCl [Flomax] 0.4 mg PO DAILY 03/24/18 Finasteride [Proscar -] 5 mg PO DAILY 08/12/18 Preservision Areds 2 Softgel 2 cap PO AM 08/12/18 COPD: No Disorders: Yes (BLADDER/PROSTATE PROBLEMS) - Surgical History Cardiac Surgery: Yes (CABGX3) Orthopedic Surgery: Yes (Bilateral Hip and Knee) - Immunization History Immunization Up to Date: Yes - Psycho-Social/Smoking History Smoking History: Never smoked Have you smoked in the past 12 months: No Information on smoking cessation initiated: No - Substance Abuse Hx (Audit-C & DAST Scrn) How often the patient has a drink containing alcohol: Monthly or less Number of drinks the patient has on a typical day: 1 or 2 How often the patient has six or more drinks on one occasion: Never Score: In Men: 4 or > Positive; In Women: 3 or > Positive: 1 Screen Result (Pos requires Nsg. Audit-10AR): Negative In the last yr the pt used illegal drug/Rx for NonMed reason: No Score: Yes response is considered Positive: 0 Screen Result (Positive result requires Nsg. DAST-10): Negative *Physical Exam - Vital Signs Last Vital Signs Temp Pulse Resp BP Pulse Ox 98.4 F 60 18 137/64 99 02/07/20 12:07 02/07/20 12:07 02/07/20 12:07 02/07/20 12:07 02/07/20 12:07 Procedures - Laceration/Wound Repair Nose Wound Length: to 2.5 cm Wound Explored: clean Wound's Depth, Shape: superficial Irrigated w/ Saline: No Betadine Prep: No Wound Repaired With: Steri-strips ED Treatment Course - Medications Given in the ED: ED Medications Discontinued Medications Generic Name Dose Route Start Last Admin Trade Name Freq PRN Reason Stop Dose Admin Acetaminophen 975 mg 02/07/20 12:08 02/07/20 13:01 Tylenol - PO 02/07/20 12:09 975 mg ONCE ONE Administration Discharge - Discharge Information Problems reviewed: Yes Clinical Impression/Diagnosis: Laceration Fall Qualifiers: Encounter type: initial encounter Qualified Code(s): W19.XXXA - Unspecified fall, initial encounter Condition: Stable - Follow up/Referral - Patient Discharge Instructions - Post Discharge Activity
== END 2020-02-07 14:48 | disposition home or self-care (01) ==
LOC: FER 12:06
DX: S01.419A Laceration without foreign body of unspecified cheek and temporomandibular area, initial encounter (principal)
CPT/HCPCS: 70450-TC; 70486-TC; 72125-TC; 99285-25

== ENCOUNTER 2020-04-17 07:31 | Inpatient (IN) | payer OTHER ==
[2020-04-17 07:43] VITALS: BMI 25.0
[2020-04-17] MEDS ORDERED: SODIUM CHLORIDE 500 ML IV STA (07:59)
[2020-04-17 08:24] LABS: BASO % 0.2 % (0-2.0); HEMATOCRIT 15.8 % (35.4-49); LYMPH % 21.4 % (8-40); MCHC 34.4 g/dl (32.0-35.9); MEAN CELL VOLUME 90.2 fl (80-96); MEAN PLT VOLUME 7.7 fl (7.5-11.1); MONO % 8.7 % (3.8-10.2); NEUT % 69.7 % (42.8-82.8); PLATELET COUNT 158 K/MM3 (134-434); RBC 1.75 M/mm3 (4.00-5.60); RDW 14.7 % (11.9-15.9); WHITE BLOOD COUNT 6.2 K/mm3 (4.0-10.0)
[2020-04-17 08:26] LABS: HEMOGLOBIN 5.4 GM/dL (11.7-16.9)
[2020-04-17 08:31] LABS: INR 1.54 (0.83-1.09); PROTHROMBIN TIME (PATIENT) 18.7 SEC (9.7-13.0)
[2020-04-17 08:52] LABS: POTASSIUM 4.4 mmol/L (3.5-5.1)
[2020-04-17 08:54] LABS: CALCIUM 8.3 mg/dL (8.5-10.1)
[2020-04-17 08:55] LABS: ALBUMIN 2.8 g/dl (3.4-5.0); BLOOD UREA NITROGEN 27.5 mg/dL (7-18)
[2020-04-17 08:58] LABS: CREATININE 0.8 mg/dL (0.55-1.3)
[2020-04-17 08:59] LABS: BILIRUBIN,TOTAL 1.8 mg/dL (0.2-1)
[2020-04-17 09:00] LABS: TOT PROT 5.4 g/dl (6.4-8.2)
[2020-04-17] MEDS ORDERED: ACETAMINOPHEN 325 MG TABLET (FP) PO PRN (11:39)
[2020-04-17] MEDS ORDERED: PANTOPRAZOLE SODIUM 40 MG VIAL ONE (11:44)
[2020-04-17] MEDS: PANTOPRAZOLE SODIUM 40 MG VIAL IVPUSH SCH ×2 (11:45→21:43)
[2020-04-17] MEDS ORDERED: FUROSEMIDE 40 MG/4 ML INJECTABLE VIAL IVPUSH ONE (14:53)
[2020-04-17] MEDS ORDERED: FUROSEMIDE 40 MG/4 ML INJECTABLE VIAL ONE (14:55)
[2020-04-17] MEDS ORDERED: ZOLPIDEM TARTRATE 5 MG TABLET PO PRN (19:44)
[2020-04-17 20:28] LABS: BASO % 0.1 % (0-2.0); HEMATOCRIT 22.6 % (35.4-49); HEMOGLOBIN 7.5 GM/dL (11.7-16.9); LYMPH % 5.5 % (8-40); MCHC 33.4 g/dl (32.0-35.9); MEAN CELL VOLUME 89.9 fl (80-96); MEAN PLT VOLUME 7.9 fl (7.5-11.1); NEUT % 81.4 % (42.8-82.8); PLATELET COUNT 156 K/MM3 (134-434); RBC 2.51 M/mm3 (4.00-5.60); RDW 15.1 % (11.9-15.9); WHITE BLOOD COUNT 12.8 K/mm3 (4.0-10.0)
[2020-04-17 20:52] LABS: POTASSIUM 4.6 mmol/L (3.5-5.1)
[2020-04-17 20:53] LABS: CALCIUM 8.2 mg/dL (8.5-10.1)
[2020-04-17] MEDS: ATORVASTATIN CA 40 MG TABLET (FP) PO SCH (21:42)
[2020-04-18 06:46] LABS: BASO % 0.1 % (0-2.0); HEMATOCRIT 20.1 % (35.4-49); LYMPH % 15.7 % (8-40); MCH 30.9 pg (25.7-33.7); MCHC 34.5 g/dl (32.0-35.9); MEAN CELL VOLUME 89.6 fl (80-96); MEAN PLT VOLUME 8.2 fl (7.5-11.1); MONO % 13.3 % (3.8-10.2); NEUT % 70.9 % (42.8-82.8); PLATELET COUNT 161 K/MM3 (134-434); RBC 2.24 M/mm3 (4.00-5.60); RDW 15.1 % (11.9-15.9); WHITE BLOOD COUNT 10.4 K/mm3 (4.0-10.0)
[2020-04-18 07:08] LABS: ALBUMIN 2.9 g/dl (3.4-5.0); CALCIUM 7.9 mg/dL (8.5-10.1)
[2020-04-18 07:13] LABS: TOT PROT 5.3 g/dl (6.4-8.2)
[2020-04-18 07:20] LABS: BILIRUBIN,TOTAL 4.7 mg/dL (0.2-1)
[2020-04-18] MEDS: PANTOPRAZOLE SODIUM 40 MG VIAL IVPUSH SCH ×2 (09:47→22:16)
[2020-04-18] MEDS ORDERED: SENNOSIDES 8.6MG TABLET (FP) PO SCH (10:00)
[2020-04-18] MEDS ORDERED: FINASTERIDE 5 MG TABLET (FP) PO SCH (10:00)
[2020-04-18] MEDS ORDERED: SPIRONOLACTONE 25 MG TABLET PO SCH (10:00)
[2020-04-18] MEDS ORDERED: TAMSULOSIN HCL 0.4 MG CAP PO SCH (10:00)
[2020-04-18 10:20] LABS: HEMOGLOBIN 6.9 GM/dL (11.7-16.9)
[2020-04-18] MEDS ORDERED: SODIUM CHLORIDE 250 ML IV STA (10:40)
[2020-04-18 12:51] LABS: MCH 31.4 pg (25.7-33.7); MCHC 34.5 g/dl (32.0-35.9); MEAN CELL VOLUME 90.9 fl (80-96); PLATELET COUNT 144 K/MM3 (134-434); RBC 2.09 M/mm3 (4.00-5.60); WHITE BLOOD COUNT 8.9 K/mm3 (4.0-10.0)
[2020-04-18 12:59] LABS: HEMOGLOBIN 6.6 GM/dL (11.7-16.9)
[2020-04-18 13:06] LABS: POTASSIUM 4.4 mmol/L (3.5-5.1)
[2020-04-18] MEDS ORDERED: SODIUM CHLORIDE 1 GM TABLET PO ONE (13:06)
[2020-04-18 13:08] LABS: ALBUMIN 2.7 g/dl (3.4-5.0); BLOOD UREA NITROGEN 23.8 mg/dL (7-18); CALCIUM 7.8 mg/dL (8.5-10.1)
[2020-04-18 13:12] LABS: CREATININE 0.9 mg/dL (0.55-1.3)
[2020-04-18 13:13] LABS: BILIRUBIN,TOTAL 3.7 mg/dL (0.2-1); TOT PROT 4.9 g/dl (6.4-8.2)
[2020-04-18] MEDS ORDERED: MELATONIN 5 MG TABLETS PO ONE (21:28)
[2020-04-18] MEDS: ATORVASTATIN CA 40 MG TABLET (FP) PO SCH (22:16)
[2020-04-19 07:16] LABS: BASO % 0.5 % (0-2.0); EOS % 0.6 % (0-4.5); HEMATOCRIT 21.3 % (35.4-49); HEMOGLOBIN 7.4 GM/dL (11.7-16.9); MCH 30.7 pg (25.7-33.7); MCHC 34.7 g/dl (32.0-35.9); MEAN CELL VOLUME 88.6 fl (80-96); MEAN PLT VOLUME 7.8 fl (7.5-11.1); MONO % 17.6 % (3.8-10.2); NEUT % 59.3 % (42.8-82.8); PLATELET COUNT 149 K/MM3 (134-434); WHITE BLOOD COUNT 6.9 K/mm3 (4.0-10.0)
[2020-04-19 07:26] LABS: POTASSIUM 4.1 mmol/L (3.5-5.1)
[2020-04-19 07:30] LABS: CALCIUM 7.4 mg/dL (8.5-10.1)
[2020-04-19 07:31] LABS: ALBUMIN 2.6 g/dl (3.4-5.0)
[2020-04-19 07:33] LABS: CREATININE 0.9 mg/dL (0.55-1.3)
[2020-04-19 07:35] LABS: BILIRUBIN,TOTAL 3.9 mg/dL (0.2-1); TOT PROT 4.8 g/dl (6.4-8.2)
[2020-04-19] MEDS ORDERED: PROPOFOL 20 ML ONE ×2 (07:45)
[2020-04-19] MEDS ORDERED: SUCCINYLCHOLINE CHLORIDE 200 MG/10 ML SYRINGE ONE (07:45)
[2020-04-19] MEDS ORDERED: ceFAZolin SODIUM 1 GM VIAL IVPB ONE (08:06)
[2020-04-19] MEDS ORDERED: ONDANSETRON 4 MG/2 ML VIAL IVPUSH PRN (09:03)
[2020-04-19] MEDS ORDERED: ACETAMINOPHEN 325 MG TABLET (FP) PO PRN (09:32)
[2020-04-19] MEDS: PANTOPRAZOLE SODIUM 40 MG VIAL IVPUSH SCH ×2 (11:49→22:26)
[2020-04-19] MEDS: FINASTERIDE 5 MG TABLET (FP) PO SCH (11:49)
[2020-04-19] MEDS: SENNOSIDES 8.6MG TABLET (FP) PO SCH (11:49)
[2020-04-19] MEDS: ZOLPIDEM TARTRATE 5 MG TABLET PO PRN (22:26)
[2020-04-19] MEDS: ATORVASTATIN CA 40 MG TABLET (FP) PO SCH (22:26)
[2020-04-20 06:47] LABS: EOS % 0.1 % (0-4.5); HEMATOCRIT 24.9 % (35.4-49); HEMOGLOBIN 8.6 GM/dL (11.7-16.9); LYMPH % 9.4 % (8-40); MCH 31.1 pg (25.7-33.7); MCHC 34.6 g/dl (32.0-35.9); MEAN CELL VOLUME 89.9 fl (80-96); MEAN PLT VOLUME 7.9 fl (7.5-11.1); NEUT % 78.5 % (42.8-82.8); PLATELET COUNT 175 K/MM3 (134-434); RBC 2.77 M/mm3 (4.00-5.60); RDW 15.3 % (11.9-15.9); WHITE BLOOD COUNT 11.5 K/mm3 (4.0-10.0)
[2020-04-20 07:01] LABS: POTASSIUM 4.2 mmol/L (3.5-5.1)
[2020-04-20 07:02] LABS: ALBUMIN 2.7 g/dl (3.4-5.0)
[2020-04-20 07:04] LABS: CALCIUM 7.9 mg/dL (8.5-10.1)
[2020-04-20 07:05] LABS: BLOOD UREA NITROGEN 15.5 mg/dL (7-18); MAGNESIUM 2.3 mg/dL (1.8-2.4)
[2020-04-20 07:08] LABS: CREATININE 0.8 mg/dL (0.55-1.3)
[2020-04-20 07:09] LABS: BILIRUBIN,TOTAL 2.4 mg/dL (0.2-1); TOT PROT 5.1 g/dl (6.4-8.2)
[2020-04-20] MEDS: FINASTERIDE 5 MG TABLET (FP) PO SCH (09:42)
[2020-04-20] MEDS: TAMSULOSIN HCL 0.4 MG CAP PO SCH (09:42)
[2020-04-20] MEDS: PANTOPRAZOLE SODIUM 40 MG VIAL IVPUSH SCH ×3 (09:43→21:43)
[2020-04-20] MEDS: SENNOSIDES 8.6MG TABLET (FP) PO SCH (09:44)
[2020-04-20] MEDS: ZOLPIDEM TARTRATE 5 MG TABLET PO PRN (21:41)
[2020-04-20] MEDS: ATORVASTATIN CA 40 MG TABLET (FP) PO SCH (21:41)
[2020-04-21 07:24] LABS: BASO % 0.3 % (0-2.0); EOS % 1.2 % (0-4.5); HEMATOCRIT 26.3 % (35.4-49); HEMOGLOBIN 9.1 GM/dL (11.7-16.9); MCH 31.5 pg (25.7-33.7); MCHC 34.6 g/dl (32.0-35.9); MEAN CELL VOLUME 91.3 fl (80-96); MEAN PLT VOLUME 7.6 fl (7.5-11.1); MONO % 10.3 % (3.8-10.2); NEUT % 64.2 % (42.8-82.8); PLATELET COUNT 206 K/MM3 (134-434); RBC 2.89 M/mm3 (4.00-5.60); RDW 15.4 % (11.9-15.9); WHITE BLOOD COUNT 8.5 K/mm3 (4.0-10.0)
[2020-04-21 08:17] LABS: CALCIUM 8.2 mg/dL (8.5-10.1)
[2020-04-21 08:18] LABS: ALBUMIN 2.7 g/dl (3.4-5.0); BLOOD UREA NITROGEN 13.7 mg/dL (7-18)
[2020-04-21 08:21] LABS: CREATININE 0.9 mg/dL (0.55-1.3)
[2020-04-21 08:22] LABS: BILIRUBIN,TOTAL 2.2 mg/dL (0.2-1)
[2020-04-21] MEDS: FINASTERIDE 5 MG TABLET (FP) PO SCH (10:08)
[2020-04-21] MEDS: SENNOSIDES 8.6MG TABLET (FP) PO SCH (10:08)
[2020-04-21] MEDS: PANTOPRAZOLE SODIUM 40 MG VIAL IVPUSH SCH (10:09)
[2020-04-21] MEDS: TAMSULOSIN HCL 0.4 MG CAP PO SCH (10:09)
[2020-04-21] MEDS ORDERED: TAMSULOSIN HCL 0.4 MG CAP PO ONE (16:52)
[2020-04-21] MEDS: ATORVASTATIN CA 40 MG TABLET (FP) PO SCH (22:18)
[2020-04-21] MEDS: ZOLPIDEM TARTRATE 5 MG TABLET PO PRN (22:18)
[2020-04-22 07:02] LABS: BASO % 0.5 % (0-2.0); EOS % 2.5 % (0-4.5); HEMATOCRIT 26.6 % (35.4-49); LYMPH % 28.9 % (8-40); MCH 31.1 pg (25.7-33.7); MCHC 33.9 g/dl (32.0-35.9); MEAN CELL VOLUME 91.8 fl (80-96); MEAN PLT VOLUME 7.4 fl (7.5-11.1); MONO % 12.1 % (3.8-10.2); PLATELET COUNT 219 K/MM3 (134-434); RBC 2.89 M/mm3 (4.00-5.60); WHITE BLOOD COUNT 6.5 K/mm3 (4.0-10.0)
[2020-04-22 07:12] LABS: POTASSIUM 4.4 mmol/L (3.5-5.1)
[2020-04-22 07:19] LABS: CALCIUM 7.7 mg/dL (8.5-10.1)
[2020-04-22 07:20] LABS: ALBUMIN 2.8 g/dl (3.4-5.0); BLOOD UREA NITROGEN 16.9 mg/dL (7-18)
[2020-04-22 07:23] LABS: CREATININE 0.9 mg/dL (0.55-1.3)
[2020-04-22 07:24] LABS: BILIRUBIN,TOTAL 2.2 mg/dL (0.2-1); TOT PROT 5.2 g/dl (6.4-8.2)
[2020-04-22] MEDS: TAMSULOSIN HCL 0.4 MG CAP PO SCH (08:18)
[2020-04-22] MEDS: SENNOSIDES 8.6MG TABLET (FP) PO SCH (09:38)
[2020-04-22] MEDS: FINASTERIDE 5 MG TABLET (FP) PO SCH (09:38)
[2020-04-22 10:34] VITALS: BP 114/60; PULSE 78; TEMP 97.8
== END 2020-04-22 10:08 | disposition home or self-care (01) | DRG 920 ==
LOC: JER 07:31 → SUPCPDRO 07:31 → JERBED 09:33 → J4W 15:56
PROVIDERS: ADMIT Family Medicine; ATTEND Family Medicine
PROC: 30233N1 Transfusion of Nonautologous Red Blood Cells into Peripheral Vein, Percutaneous Approach (ICD-10-PCS; 2020-04-19)
PROC: 0TCB8ZZ Extirpation of Matter from Bladder, Via Natural or Artificial Opening Endoscopic (ICD-10-PCS; principal; 2020-04-19 07:30)
DX: N99.820 Postprocedural hemorrhage of a genitourinary system organ or structure following a genitourinary system procedure (principal); E87.1 Hypo-osmolality and hyponatremia; I50.32 Chronic diastolic (congestive) heart failure; N40.0 Benign prostatic hyperplasia without lower urinary tract symptoms; I25.10 Atherosclerotic heart disease of native coronary artery without angina pectoris; Z95.1 Presence of aortocoronary bypass graft; I44.7 Left bundle-branch block, unspecified; D51.9 Vitamin B12 deficiency anemia, unspecified; R31.0 Gross hematuria; I25.5 Ischemic cardiomyopathy; I48.0 Paroxysmal atrial fibrillation; E78.5 Hyperlipidemia, unspecified; I11.0 Hypertensive heart disease with heart failure; Y83.8 Other surgical procedures as the cause of abnormal reaction of the patient, or of later complication, without mention of misadventure at the time of the procedure
CPT/HCPCS: 36415; 36430; 71045-TC-FY; 80048; 80053; 82272; 82436; 82565; 82607; 82728; 82746; 83540; 83550; 83735; 83930; 84133; 84300; 85025; 85027; 85610; 86850; 86900; 86901; 86922; 93005; 93010; 94760; 97116-GP; 99285-25; C9803; P9038; P9058; U0003

== ENCOUNTER 2022-01-08 12:16 | Emergency (ER) | payer OTHER ==
[2022-01-08 12:51] VITALS: PULSE 60; TEMP 98.2; BMI 26.9
[2022-01-08] MEDS ORDERED: DIPHTH,PERTUSS(ACELL),TET 0.5 ML DISP.SYRIN IM ONE ×2 (13:32→13:44)
[2022-01-08] MEDS ORDERED: ACETAMINOPHEN 500 MG TABLET (FP) PO ONE (15:43)
[2022-01-08] MEDS ORDERED: ACETAMINOPHEN 325 MG TABLET (FP) ONE (15:49)
[2022-01-08 18:32] VITALS: BP 117/51; RESP 18
== END 2022-01-08 18:59 | disposition home or self-care (01) ==
LOC: JER 12:16
PROC: 0HQ0XZZ Repair Scalp Skin, External Approach (ICD-10-PCS; principal; 2022-01-08)
PROC: 3E0234Z Introduction of Serum, Toxoid and Vaccine into Muscle, Percutaneous Approach (ICD-10-PCS; 2022-01-08)
DX: S01.81XA Laceration without foreign body of other part of head, initial encounter (principal); W01.0XXA Fall on same level from slipping, tripping and stumbling without subsequent striking against object, initial encounter
CPT/HCPCS: 12001-25; 70450-TC; 72125-TC; 73030-TC-LT-FY; 90471; 90715; 99285-25